=== PATIENT | male | born 1965 | race Caucasian/White ===

== ENCOUNTER → 2018-09-29 | Outpatient (CLI) | payer OTHER ==
--- NOTE | 2018-09-29 16:48 | PCVCIMAG ---
APPROVED REPORT Study performed: 09/29/2018 15:36:54 Exam: Stress Echocardiogram Indication: Dyspnea, Abnormal EKG, Family Hx CAD Patient Location: Echo lab Stress Nurse: Elle Lockhart RN Room #: 2 Status: routine Ht: 6 ft 1 in HR: 82 bpm BP: 128/82 mmHg Rhythm: NSR Medical History Medical History: HTN, Hyperlipidemia Cardiac Risk Factors: HTN, Hyperlipidemia, FHX of CAD Previous Cardiac Procedures: none Pretest Chest Pain Characteristics: No chest pain Exercise History: Physically active Procedure The patient underwent an Exercise Stress Test using the Broderick Protocol. Blood pressure, heart rate, and EKG were monitored. An Echocardiogram was performed by library technician in four stages in quad fashion. At peak stress, four selected images were obtained and placed side by side with resting images for comparison. Stress Test Details Stress Test: Exercise stress testing was performed using a Broderick protocol. HR Resting HR: 82 bpmMax Heart Rate (APMHR): 167 bpm Max HR Achieved: 169 bpmTarget HR (85% APMHR): 141 bpm % of APMHR: 101 Recovery HR: 116 bpm HR response to stress: Normal HR response to stress BP Resting BP: 128/82 mmHg Max BP: 196/82 mmHg Recovery BP: 172/88 mmHg BP response to stress: Normal blood pressure response to stress. ECG Resting ECG: Sinus Rhythm Stress ECG: Sinus Rhythm ST Change: Non-ischemic Arrhythmia: rare PVCs Recovery ECG: Sinus Rhythm Recovery ST Change: Non-ischemic Recovery Arrhythmia: None Clinical Reason for Termination: Maximal effort Stress Symptoms: fatigue, dyspnea Exercise duration: 10 min 01 sec Highest Stage Achieved: Stage 4: 4.2 mph at 16% grade. Exercise capacity: 13.4 METs Overall Exercise Capacity for Age: Good Angina Score: None No complications. Stress ECG Conclusion The patient exercised according to the BRODERICK protocol for 10:01 mins; achieving a work level of 13.4 METS. The resting heart rate of 82 bpm angela to a maximum heart rate of 173 bpm. This value represent 103% of the maximal, age-predicted heart rate. The resting blood pressure of 128/82 mmHg, angela to a maximum blood pressure of 196/82 mmHg. The exercise test was stopped due to fatigue and dyspnea. Pre-Stress Echo The resting Echocardiogram showed normal left ventricular contractility with an estimated Ejection Fraction of about 55-60%. Normal wall motion in all segments on baseline images. Post-Stress Echo The stress Echocardiogram showed normal left ventricular contractility with an estimated Ejection Fraction of about 65-70%. Normal augmentation of wall motion in all segments on post stress images. Clinical No clinical or ECG evidence for ischemia. Conclusion Clinical Response: Non-ischemic Exercise Capacity: Superior Stress ECG Response: Non-ischemic Stress Echo Images: Non-ischemic No clinical, EKG or echocardiographic evidence for ischemia. No echocardiographic evidence for exercise induced ischemia. Normal stress echocardiogram with maximal exercise stress. <Conclusion> No clinical, EKG or echocardiographic evidence for ischemia. No echocardiographic evidence for exercise induced ischemia. Normal stress echocardiogram with maximal exercise stress.
== END | disposition home or self-care (01) ==
LOC: PCVCIMAG 16:00
PROVIDERS: ATTEND Internal Medicine Cardiovascular Disease
DX: R94.31 Abnormal electrocardiogram [ECG] [EKG] (principal); R06.09 Other forms of dyspnea; Z82.49 Family history of ischemic heart disease and other diseases of the circulatory system
CPT/HCPCS: 93325; 93351